=== PATIENT | female | born 1945 | race Caucasian/White ===

== ENCOUNTER 2020-06-17 16:09 | Emergency (ER) | payer MEDICARE, OTHER, SELFPAY ==
[2020-06-17 16:38] VITALS: BP 121/82; PULSE 105; RESP 15; TEMP 37.1; O2SAT 96; BMI 20.1
[2020-06-17 16:55] VITALS: BP 124/72; PULSE 63; RESP 18; O2SAT 96
--- NOTE | 2020-06-17 16:59 | XRR_ITS ---
PROCEDURE INFORMATION: Exam: XR Chest, 1 View Exam date and time: 06/17/2020 5:33 PM Age: 75 years old Clinical indication: Cough and dyspnea TECHNIQUE: Imaging protocol: XR of the chest Views: 1 view. COMPARISON: CR Chest 1 [place] [id number] 12/26/2015 11:02 PM FINDINGS: Tubes, catheters and devices: Pacemaker. Lungs: No visible active interstitial or alveolar airspace disease. COPD/chronic bronchitis. Pleural space: Unremarkable. No pleural effusion. No pneumothorax. Heart/Mediastinum: Cardiac size upper limits of normal. Arterial sclerosis. Bones/joints: Unremarkable. XR/XR chest 1V portable [id number] IMPRESSION: Nonacute.
--- NOTE | 2020-06-17 17:00 | ECG_ITS ---
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 Measurements Intervals [place] Rate: 61 P: 84 AK: 220 QRS: -16 QRSD: 86 T: 23 QT: 411 QTc: 415 Interpretive Statements ELECTRONIC ATRIAL PACEMAKER ABNORMAL RHYTHM ECG Compared to ECG 12/27/2015 10:37:42 Sinus rhythm no longer present Sinus arrhythmia no longer present Myocardial infarct finding no longer present Electronically Signed On 06-18-2020 20:26:34 CDT by Eduardo Ramirez M.D. [email or web address] Identity [facility].[email or web address]/NU/[id number] f
--- NOTE | 2020-06-17 17:00 | W.ED.GENADLT ---
HPI - General Adult General: Chief complaint: General Medical Stated complaint: hypotension-sent by PCP Time Seen by Provider: 06/17/20 16:49 Source: patient Mode of arrival: ambulatory Limitations: no limitations History of Present Illness: HPI narrative: Ms. Shane is a nice 75-year-old female referred to us by Dr. Horvath for low blood pressure in the office. Patient's blood pressure has been in the 90s even as low as 66 systolic. The patient states that over the weekend she is felt poorly with dizziness, lightheadedness and generalized weakness. She is also had URI symptoms. She adamantly denies being exposed to any type of COVID virus that she states she is been showed up in her house the entire time. She denies any chest pain, shortness of breath, headache, back pain, abdominal pain, blood in her stools, fever, urinary symptoms or any other complaints. Associated symptoms: Deny chest pain, dyspnea, headache(s), nausea, rash, palpitations, syncope or vomiting Review of Systems Const: Denies: fever(s) Eyes: Denies: change in vision ENMT: Denies: throat pain Card: Denies: chest pain, palpitations, syncope, pre-syncope or dyspnea on exertion Resp: Denies: dyspnea, productive cough or non-productive cough GI: Denies: abdominal pain, nausea, vomiting or diarrhea : Denies: flank pain, dysuria, urinary frequency or urinary urgency Musc: Denies: neck pain, back pain or extremity pain Skin/Breast: Denies: rash or pruritus Neuro: Denies: headache(s), numbness in extremities, weakness in extremities or dizziness Haris/Lymph: Denies: easy bruising or easy bleeding All/Imm: Denies: urticaria PFS ED PFSH: Medical History (Updated 06/17/20 @ 20:10 by Shy Ferrer) Atrial fibrillation History of myocardial infarction HTN (hypertension) Status post left heart catheterization Surgical History (Updated 06/17/20 @ 17:02 by Shy Ferrer) S/P cardiac pacemaker procedure (~11/22/14) S/P carpal tunnel release S/P cervical spinal fusion S/P knee surgery S/P shoulder surgery S/P tonsillectomy and adenoidectomy S/P total hip arthroplasty S/P tubal ligation Family History Mother CAD (coronary artery disease) Heart disease Brother CAD (coronary artery disease) Father CAD (coronary artery disease) Heart disease Myocardial infarction Other Cancer Social History (Updated 06/17/20 @ 16:44 by Pako Agudelo RN) Smoking and tobacco status: former smoker Alcohol intake: never Physical Exam Const: COMMON NORMALS: no acute distress, patient oriented x3, no limitations, healthy appearing and well nourished GENERAL APPEARANCE: cooperative, well kempt and well developed HENMT: COMMON NORMALS: normocephalic, atraumatic, external ears normal, EAC's normal and Normal external nose present HEAD & SCALP: normal to inspection, normocephalic and atraumatic FACE & SINUS: normal facial exam and face symmetric NOSE: Normal external nose present and Normal nares present EXTERNAL EAR: Yes external ears normal EXTERNAL AUDITORY CANAL: EAC's normal MOUTH: Normal oral and palatal mucosa present, lip normal and tongue normal Eye: COMMON NORMALS: Equal, round and reactive pupils present and conjunctivae normal GENERAL EYE: appearance normal, both eyes and all related structures ALIGNMENT: Yes alignment normal PERIORBITAL: periorbital findings normal EYELID: eyelids normal CONJUNCTIVA: Yes conjunctivae normal SCLERA: sclerae normal PUPIL: Yes Equal, round and reactive pupils present Neck/C-Spine: COMMON NORMALS: full ROM, no lymphadenopathy, supple, no meningeal signs and no JVD GENERAL: Yes normal visual inspection and Yes trachea midline Chest: COMMONS NORMALS: normal inspection of the chest and normal palpation of entire chest wall Resp: COMMON NORMALS: normal respiratory effort, No retractions and No use of accessory muscles EFFORT & INSPECTION: Yes able to speak in complete sentences and Yes symmetric chest movement AUSCULTATION: no crackles, no rales, no rhonchi and no wheezes Cardio: COMMON NORMALS: no JVD, regular rate, regular rhythm, S1 normal heart sound present and S2 normal heart sound present RATE: regular rate RHYTHM: regular rhythm HEART SOUNDS: S1 normal heart sound present, S2 normal heart sound present, no click, no gallops, no murmurs, no rubs and abnormal split S2 GI: COMMON NORMALS: Soft to palpation and No hepatosplenomegaly present PALPATION: Yes Soft to palpation, No Tenderness to palpation present (GI), No Guarding due to palpation present (GI), No Rigid due to palpation, Yes No hepatosplenomegaly present, No Hernia present, No Palpable mass present and No Pulsatile mass present : COMMON NORMALS: Yes no CVA tenderness BLADDER/KIDNEY EXAM: Yes no CVA tenderness EXTERNAL FEMALE EXAM: No Hernia present Back/Pelvis: COMMON NORMALS: no CVA tenderness, thoracic and lumbar spine normal to inspection, no thoracic nor lumbar tenderness and thoraco-lumbar ROM normal Extremity: COMMON NORMALS: normal to inspection, full ROM, capillary refill normal, no joint enlargement, no clubbing, cyanosis or edema and no calf tenderness Neuro: COMMON NORMALS: patient oriented x3, CN's II-XII intact bilaterally, moves all extremities, no focal motor deficits and no sensory deficits noted MENINGEAL SIGNS: Yes no meningeal signs SPEECH: speech normal Psych: COMMON NORMALS: mental status grossly normal, Normal thought process present, cooperative, normal affect, speech normal and activity/motor behavior normal APPEARANCE: Yes well kempt SPEECH: Yes normal speech THOUGHT PROCESS: Normal thought process present Skin: COMMON NORMALS: no rashes or lesions noted, turgor normal, no jaundice, no petechiae and no mottling GENERAL SKIN EXAM: no rashes or lesions noted and turgor normal Course Vital Signs: Vital signs: Vital Signs Temperature 98.7 F 06/17/20 16:38 Pulse Rate 68 06/17/20 22:17 Respiratory Rate 18 06/17/20 22:17 Blood Pressure 115/68 06/17/20 22:17 Pulse Oximetry 96 06/17/20 22:17 MDM - General Adult MDM Narrative: Medical decision making narrative: The patient is not orthostatic and her vital signs have been normal and stable here. The patient complains of URI symptoms but no fever. I will go ahead and COVID test her and then discharge her home. Her digoxin is pending but I anticipat it will be normal. Patient denies any other questions or concerns she declines to stay for any other treatment. She agrees to follow-up with Dr. Horvath for further evaluation and care. I did review the case with Dr. Horvath and she is in agreement with this plan. Patient otherwise no complaints or concerns. Patient has a questionable area on her chest x-ray so I will cover her with antibiotics for possible developing pneumonia. Lab Data: Labs: Lab Results 06/17/20 06/17/20 06/17/20 Range/Units 17:15 17:15 17:15 WBC 5.4 (4.0-10.0) 10^3/ uL RBC 3.78 L (4.1-5.3) 10^6/u L Hgb 11.8 (11.5-15.3) g/dL Hct 36.5 L (37.0-47.0) % MCV 96.6 (81-99) fL MCH 31.2 (28.0-34.0) pg MCHC 32.3 (30.0-36.0) g/dL RDW 13.7 (12.1-15.1) % Plt Count 175 (130-400) 10^3/c mm MPV 9.7 (7.4-10.4) fL Neut % (Auto) 56.2 % Lymph % (Auto) 31.8 % [place] % (Auto) 10.1 % Eos % (Auto) 1.3 % Baso % (Auto) 0.4 % Neut # (Auto) 3.02 (1.8-7.7) 10^3/u L Lymph # (Auto) 1.7 (0.8-4.8) 10^3/u L [place] # (Auto) 0.5 (0.2-0.9) 10^3/u L Eos # (Auto) 0.1 (0.0-0.8) 10^3/u L Baso # (Auto) 0.0 (0.0-0.1) 10^3/u L Nucleated RBC % (a uto) 0 % Nucleated RBCs # 0.0 /100WBC PT (10.5-13.3) SECO NDS INR (0.8-1.2) Sodium 134 L (136-145) mmol/L Potassium 4.0 (3.5-5.1) mmol/L Chloride 97 L (98-107) mmol/L Carbon Dioxide 26 (22-29) mmol/L Anion Gap 15.0 (5-19) BUN 21 (8-23) mg/dL Creatinine 0.7 (0.5-0.9) mg/dL Glucose 82 (65-115) mg/dL Calculated Osmolal ity 274 L (285-295) mOsm/k g Lactic Acid 0.9 (0.5-2.2) mmol/L Calcium 9.5 (8.5-10.5) mg/dL Magnesium 2.0 (1.7-2.3) mg/dL Total Bilirubin 0.2 (0.15-1.2) mg/dL AST 23 (0-32) U/L ALT 10 (0-33) U/L Alkaline Phosphata se 96 (35-105) IU/L Troponin T Baselin e (0-10) ng/L Troponin T 120 Min eyak (0-10) ng/L Delta Troponin T (0-10) ABS# Total Protein 6.9 (6.6-8.7) g/dL Albumin 4.2 (3.5-5.2) g/dL Globulin 2.7 (1.3-4.6) g/dL Lipase 44 (13-60) U/L TSH 1.15 (0.27-4.20) uIU/ mL Urine Color (Yellow) Urine Appearance (CLEAR) Urine pH (5-7) Ur Specific Gravit y (1.005-1.030) Urine Protein (Negative) Urine Glucose (UA) (Normal) Urine Ketones (Negative) Urine Blood (Negative) Urine Nitrate (Negative) Urine Bilirubin (NEGATIVE) Urine Urobilinogen (Negative) mg/dL Ur Leukocyte Jossy ase (Negative) Urine RBC (0-2) /hpf Urine WBC (0-5) /hpf Ur Squamous Epith Cells (0-5) Urine Bacteria (NONE) Digoxin (0.6-1.2) ng/mL 06/17/20 06/17/20 06/17/20 Range/Units 17:15 17:15 17:15 WBC (4.0-10.0) 10^3/ uL RBC (4.1-5.3) 10^6/u L Hgb (11.5-15.3) g/dL Hct (37.0-47.0) % MCV (81-99) fL MCH (28.0-34.0) pg MCHC (30.0-36.0) g/dL RDW (12.1-15.1) % Plt Count (130-400) 10^3/c mm MPV (7.4-10.4) fL Neut % (Auto) % Lymph % (Auto) % [place] % (Auto) % Eos % (Auto) % Baso % (Auto) % Neut # (Auto) (1.8-7.7) 10^3/u L Lymph # (Auto) (0.8-4.8) 10^3/u L [place] # (Auto) (0.2-0.9) 10^3/u L Eos # (Auto) (0.0-0.8) 10^3/u L Baso # (Auto) (0.0-0.1) 10^3/u L Nucleated RBC % (a uto) % Nucleated RBCs # /100WBC PT 11.90 (10.5-13.3) SECO NDS INR 0.85 (0.8-1.2) Sodium (136-145) mmol/L Potassium (3.5-5.1) mmol/L Chloride (98-107) mmol/L Carbon Dioxide (22-29) mmol/L Anion Gap (5-19) BUN (8-23) mg/dL Creatinine (0.5-0.9) mg/dL Glucose (65-115) mg/dL Calculated Osmolal ity (285-295) mOsm/k g Lactic Acid (0.5-2.2) mmol/L Calcium (8.5-10.5) mg/dL Magnesium (1.7-2.3) mg/dL Total Bilirubin (0.15-1.2) mg/dL AST (0-32) U/L ALT (0-33) U/L Alkaline Phosphata se (35-105) IU/L Troponin T Baselin e 8 (0-10) ng/L Troponin T 120 Min eyak (0-10) ng/L Delta Troponin T (0-10) ABS# Total Protein (6.6-8.7) g/dL Albumin (3.5-5.2) g/dL Globulin (1.3-4.6) g/dL Lipase (13-60) U/L TSH (0.27-4.20) uIU/ mL Urine Color (Yellow) Urine Appearance (CLEAR) Urine pH (5-7) Ur Specific Gravit y (1.005-1.030) Urine Protein (Negative) Urine Glucose (UA) (Normal) Urine Ketones (Negative) Urine Blood (Negative) Urine Nitrate (Negative) Urine Bilirubin (NEGATIVE) Urine Urobilinogen (Negative) mg/dL Ur Leukocyte Jossy ase (Negative) Urine RBC (0-2) /hpf Urine WBC (0-5) /hpf Ur Squamous Epith Cells (0-5) Urine Bacteria (NONE) Digoxin 1.0 (0.6-1.2) ng/mL 06/17/20 06/17/20 Range/Units 17:56 19:16 WBC (4.0-10.0) 10^3/ uL RBC (4.1-5.3) 10^6/u L Hgb (11.5-15.3) g/dL Hct (37.0-47.0) % MCV (81-99) fL MCH (28.0-34.0) pg MCHC (30.0-36.0) g/dL RDW (12.1-15.1) % Plt Count (130-400) 10^3/c mm MPV (7.4-10.4) fL Neut % (Auto) % Lymph % (Auto) % [place] % (Auto) % Eos % (Auto) % Baso % (Auto) % Neut # (Auto) (1.8-7.7) 10^3/u L Lymph # (Auto) (0.8-4.8) 10^3/u L [place] # (Auto) (0.2-0.9) 10^3/u L Eos # (Auto) (0.0-0.8) 10^3/u L Baso # (Auto) (0.0-0.1) 10^3/u L Nucleated RBC % (a uto) % Nucleated RBCs # /100WBC PT (10.5-13.3) SECO NDS INR (0.8-1.2) Sodium (136-145) mmol/L Potassium (3.5-5.1) mmol/L Chloride (98-107) mmol/L Carbon Dioxide (22-29) mmol/L Anion Gap (5-19) BUN (8-23) mg/dL Creatinine (0.5-0.9) mg/dL Glucose (65-115) mg/dL Calculated Osmolal ity (285-295) mOsm/k g Lactic Acid (0.5-2.2) mmol/L Calcium (8.5-10.5) mg/dL Magnesium (1.7-2.3) mg/dL Total Bilirubin (0.15-1.2) mg/dL AST (0-32) U/L ALT (0-33) U/L Alkaline Phosphata se (35-105) IU/L Troponin T Baselin e (0-10) ng/L Troponin T 120 Min eyak 7.57 (0-10) ng/L Delta Troponin T -0.43 L (0-10) ABS# Total Protein (6.6-8.7) g/dL Albumin (3.5-5.2) g/dL Globulin (1.3-4.6) g/dL Lipase (13-60) U/L TSH (0.27-4.20) uIU/ mL Urine Color Yellow (Yellow) Urine Appearance Clear (CLEAR) Urine pH 5 (5-7) Ur Specific Gravit y 1.015 (1.005-1.030) Urine Protein Neg (Negative) Urine Glucose (UA) Norm (Normal) Urine Ketones Negative (Negative) Urine Blood Neg (Negative) Urine Nitrate Negative (Negative) Urine Bilirubin Neg (NEGATIVE) Urine Urobilinogen Norm (Negative) mg/dL Ur Leukocyte Jossy ase Negative (Negative) Urine RBC 0-4 H (0-2) /hpf Urine WBC None (0-5) /hpf Ur Squamous Epith Cells 0-4 H (0-5) Urine Bacteria Trace (NONE) Digoxin (0.6-1.2) ng/mL EKG Data^: EKG 1: Attestation: I personally reviewed and interpreted this EKG as follows: EKG interpretation date: 06/17/20 EKG interpretation time: 17:53 Interpretation: Atrial paced rhythm at 61 beats a minute, nonspecific ST and T wave changes. Unchanged from EKG performed in office. Computer generated interpretation: Chest X-Ray 06/17/20 16:59 IMPRESSION: Nonacute. EKG 2: Attestation: I personally reviewed and interpreted this EKG as follows: EKG interpretation date: 06/17/20 EKG interpretation time: 20:07 Interpretation: Atrial paced rhythm at 54 beats a minute, no acute ST-T wave changes. PVC noted. Computer generated interpretation: Chest X-Ray 06/17/20 16:59 IMPRESSION: Nonacute. Discharge Plan Discharge Patient Disposition: Home, Self-Care Clinical Impression: Pneumonia Qualifiers: Pneumonia type: due to unspecified organism Laterality: right Lung location: lower lobe of lung Qualified Code(s): J18.9 - Pneumonia, unspecified organism Condition: Stable Prescriptions: New Levaquin 500 mg tablet 500 mg PO DAILY 10 Days RF: 0 No Action digoxin 125 mcg (0.125 mg) tablet 125 mcg PO DAILY RF: 0 metoprolol tartrate 25 mg tablet 25 mg PO DIRECTED RF: 0 oxybutynin chloride 5 mg tablet 5 mg PO DAILY RF: 0 nitroglycerin [Nitrostat] 0.4 mg tablet, sublingual 0.4 mg SUBLINGUAL Q5M PRN (Reason: chest pains) RF: 0 cyclobenzaprine 10 mg tablet 10 mg PO TID RF: 0 aspirin 325 mg tablet 325 mg PO DAILY RF: 0 cetirizine 10 mg tablet 10 mg PO DAILY RF: 0 citalopram 20 mg tablet 20 mg PO DAILY RF: 0 omeprazole 20 mg Tablet,Delayed Release (Dr/Ec) 20 mg PO DAILY RF: 0 Discharge Orders: Discharge Order (Routine); Ordered 06/17/20 Ordered By: Shy Ferrer Referrals: Tamera Robert MD [Primary Care Provider] - 1-3 days Discharge Diet: Advance as tolerated Discharge Activity: Increase activity as tolerated Patient Instructions: Bacterial Pneumonia (ED) Activity Restrictions/Additional Instructions: Please return to the ER immediately for any of the signs or symptoms listed on your discharge instruction sheets, worsening/changing of your symptoms, you are not getting better as quickly as expected, or for ANY other cause or concerns. Take your medication as prescribed. Quarantine yourself at home until you were called with results of your COVID-19 test. Return to the ER for shortness of breath, uncontrolled fever, return of generalized weakness, or for any other cause for concern. Discharge Date/Time: 06/17/20 22:18 Coding Level of Care Code ED Dispatcher Chief [employer] for Bryan Culver Exam Comprehensive
[2020-06-17 17:21] LABS: Basophils % 0.4 %; Eosinophils # 0.1 10^3/uL (0.0-0.8); Eosinophils % 1.3 %; Hematocrit 36.5 % (37.0-47.0); Hemoglobin 11.8 g/dL (11.5-15.3); Lymphocytes # 1.7 10^3/uL (0.8-4.8); Lymphocytes % 31.8 %; Mean Corpuscular HGB Conc 32.3 g/dL (30.0-36.0); Mean Corpuscular Hemoglobin 31.2 pg (28.0-34.0); Mean Corpuscular Volume 96.6 fL (81-99); Mean Platelet Volume 9.7 fL (7.4-10.4); Monocytes # 0.5 10^3/uL (0.2-0.9); Monocytes % 10.1 %; Neutrophils # 3.02 10^3/uL (1.8-7.7); Neutrophils % 56.2 %; Nucleated Red Blood Cells % 0 %; Platelet Count 175 10^3/cmm (130-400); Red Blood Count 3.78 10^6/uL (4.1-5.3); Red Cell Distribution Width 13.7 % (12.1-15.1); White Blood Count 5.4 10^3/uL (4.0-10.0)
[2020-06-17] MEDS: sodium chloride 0.9% 1,000 ML 100 ML IV (17:21)
[2020-06-17 17:34] LABS: INR 0.85 (0.8-1.2)
[2020-06-17 17:41] LABS: Lactic Sepsis W/Reflex 0.9 mmol/L (0.5-2.2)
[2020-06-17 17:42] LABS: Troponin(5th) Baseline 8 ng/L (0-10)
[2020-06-17 17:51] LABS: Alanine Aminotransferase 10 U/L (0-33); Albumin Level 4.2 g/dL (3.5-5.2); Alkaline Phosphatase 96 IU/L (35-105); Aspartate Amino Transferase 23 U/L (0-32); Blood Urea Nitrogen 21 mg/dL (8-23); Calcium 9.5 mg/dL (8.5-10.5); Carbon Dioxide 26 mmol/L (22-29); Chloride 97 mmol/L (98-107); Globulin 2.7 g/dL (1.3-4.6); Glucose 82 mg/dL (65-115); Lipase 44 U/L (13-60); Osmolality Calculated 274 mOsm/kg (285-295); Sodium 134 mmol/L (136-145); Thyroid Stimulating Hormone 1.15 uIU/mL (0.27-4.20); Total Bilirubin 0.2 mg/dL (0.15-1.2); Total Protein 6.9 g/dL (6.6-8.7)
[2020-06-17 17:52] VITALS: BP 120/69; BP 130/77; BP 131/77; PULSE 62; PULSE 63; PULSE 65
[2020-06-17 17:53] LABS: Slide Review Slide Review Perform
[2020-06-17 18:13] VITALS: BP 136/83; PULSE 63; RESP 19; O2SAT 95
[2020-06-17 18:44] LABS: Bilirubin Urine Neg (NEGATIVE); Blood Urine Neg (Negative); Glucose Urine UA Norm (Normal); Ketones Urine Negative (Negative); Leukocyte Esterase Urine Negative (Negative); Nitrate Urine Negative (Negative); Protein Urine Neg (Negative); Specific Gravity, Urine 1.015 (1.005-1.030); Urine Appearance Clear (CLEAR); Urine Color Yellow (Yellow); Urobilinogen Urine Norm (Negative); pH Urine 5 (5-7)
[2020-06-17 18:45] LABS: Add Urine Culture? No; Bacteria Urine TRACE; RBC Urine 0-4 /hpf (0-2); Squamous Epithelial Cell Urine 0-4 (0-5)
--- NOTE | 2020-06-17 19:00 | ECG_ITS ---
[facility] Test Date: 2020-06-17 Pat Name: Alanis Shane Department: Room: Gender: Female Last Turner: : 1945 Requested By: Shy Vernon Order Number: [id number] Hussain MD: Eduardo Ramirez M.D. Measurements Intervals [place] Rate: 54 P: 99 AL: 214 QRS: -17 QRSD: 86 T: 36 QT: 410 QTc: 391 Interpretive Statements ELECTRONIC ATRIAL PACEMAKER; isolated PVC ABNORMAL RHYTHM ECG Compared to ECG 06/17/2020 17:53:03 No significant changes Electronically Signed On 06-18-2020 20:36:13 CDT by Eduardo Ramirez M.D. [id number]
[2020-06-17 19:47] LABS: Troponin 5 2HR 7.57 ng/L (0-10)
[2020-06-17 20:01] LABS: Troponin 5 2HR Delta -0.43 ABS# (0-10)
[2020-06-17] MEDS: levoFLOXacin 500 mg Tablet PO (20:32)
[2020-06-17 22:17] VITALS: BP 115/68; PULSE 68; RESP 18; O2SAT 96
[2020-06-19 19:00] LABS: Quest SARS-CoV-2 RNA NOT DETECTED (NOT DETECTED)
--- NOTE | 2020-06-20 08:12 | PC.NURSE ---
pt called and informed of neg COVID results.
== END 2020-06-17 22:18 | disposition home or self-care (01) ==
PROVIDERS: Emergency Provider Emergency Medicine; PCP Internal Medicine
DX: J18.9 Pneumonia, unspecified organism (principal); Z79.82 Long term (current) use of aspirin; I48.91 Unspecified atrial fibrillation; I25.2 Old myocardial infarction; I10 Essential (primary) hypertension; Z95.0 Presence of cardiac pacemaker; Z87.891 Personal history of nicotine dependence
CPT/HCPCS: 12345; 36415; 71045; 80053; 80162; 81001; 83605; 83690; 83735; 84443; 84484; 85025; 85610; 87040; 87635; 93005; 96360; 96361; 99284; J7030

== ENCOUNTER 2020-12-11 09:57 | Outpatient (CLI) | payer MEDICARE, OTHER, SELFPAY ==
--- NOTE | 2020-12-11 10:05 | MM_ITS ---
WS: [id number] BILATERAL SCREENING DIGITAL MAMMOGRAM WITH CAD HISTORY: SCREENING COMPARISON: 08/08/2019 and 10/18/2017 Bilateral CC and MLO views submitted. Computer aided detection analyzed. Breast composition: There are scattered areas of fibroglandular density. No suspicious masses, microc alcifications or architectural distortion. Bilateral calcifications. Asymmetry in the central LEFT br east similar to prior studies. MM/[place] [id number] IMPRESSION: BI-RADS: 2-Benign FOLLOW UP: 1 Year Follow-up
== END 2020-12-11 09:58 | disposition home or self-care (01) ==
LOC: RADSHAW 10:03
PROVIDERS: PCP Internal Medicine; Visit Provider Internal Medicine
DX: Z12.31 Encounter for screening mammogram for malignant neoplasm of breast (principal)
CPT/HCPCS: 77067

== ENCOUNTER → 2021-01-28 13:01 | Outpatient (BNVA) | payer MEDICARE, OTHER, SELFPAY | PROVIDERS: PCP Internal Medicine; Referring Provider Internal Medicine; Visit Provider Podiatrist Foot & Ankle Surgery | DX: M20.42 Other hammer toe(s) (acquired), left foot (principal); L60.3 Nail dystrophy; M79.672 Pain in left foot; S93.102A Unspecified subluxation of left toe(s), initial encounter; X58.XXXA Exposure to other specified factors, initial encounter | CPT/HCPCS: 73630 ==

== ENCOUNTER → 2021-09-07 14:17 | Outpatient (BNVA) | payer MEDICARE, OTHER, SELFPAY | PROVIDERS: PCP Internal Medicine; Visit Provider Specialist | DX: M25.562 Pain in left knee (principal); M17.12 Unilateral primary osteoarthritis, left knee | CPT/HCPCS: 73560; 73565 ==

== ENCOUNTER 2021-11-09 13:05 | Outpatient (CLI) | payer MEDICARE, OTHER, SELFPAY ==
--- NOTE | 2021-11-09 13:15 | XR_ITS ---
WS: [id number] LEFT HIP HISTORY: PAIN IN LEFT HIP COMPARISON: 08/21/2019 LEFT hip: No acute fracture or dislocation. No lucency around the acetabular or femoral component. Fe moral head component is situated centrally within the acetabular cup. XR/XR hip LT 2-3V wo/w pel* [id number] IMPRESSION: 1. No hip fracture. 2. LEFT hip arthroplasty is unchanged. No loosening or fracture.
== END 2021-11-09 13:06 | disposition home or self-care (01) ==
PROVIDERS: PCP Internal Medicine; Visit Provider Nurse Practitioner Family
DX: M25.552 Pain in left hip (principal); Z96.642 Presence of left artificial hip joint
CPT/HCPCS: 73502

== ENCOUNTER → 2021-12-09 08:04 | Outpatient (BNVA) | payer MEDICARE, OTHER, SELFPAY | PROVIDERS: PCP Internal Medicine; Referring Provider Internal Medicine; Visit Provider Specialist | DX: M25.552 Pain in left hip (principal) | CPT/HCPCS: 73502 ==

== ENCOUNTER 2021-12-24 06:00 | Outpatient (RCR) | payer MEDICARE, OTHER, SELFPAY | END 2021-12-28 23:59 | disposition home or self-care (01) | LOC: SPT 06:00 | PROVIDERS: PCP Internal Medicine; Referring Provider Specialist; Visit Provider Specialist | DX: M54.50 Low back pain, unspecified (principal) | CPT/HCPCS: 97110; 97162 ==

== ENCOUNTER 2021-12-29 06:00 | Outpatient (RCR) | payer MEDICARE, OTHER, SELFPAY | END 2022-01-25 23:59 | disposition home or self-care (01) | LOC: SPT 06:00 | PROVIDERS: PCP Internal Medicine; Referring Provider Specialist; Visit Provider Specialist | DX: M54.50 Low back pain, unspecified (principal) | CPT/HCPCS: 97110 ==

== ENCOUNTER 2022-01-07 13:21 | Outpatient (CLI) | payer MEDICARE, OTHER, SELFPAY ==
--- NOTE | 2022-01-07 13:32 | MM_ITS ---
WS: [email or web address] BILATERAL DIGITAL SCREENING MAMMOGRAPHY WITH CAD CLINICAL INFORMATION: SCREENING HISTORY: Screening mammogram. No current complaints. COMPARISON: December 11, 2020 TECHNIQUE: Bilateral CC and MLO views. FINDINGS: Scattered fibroglandular densities bilaterally. Punctate and lucent centered calcifications. No suspi cious focal mass, asymmetry, calcifications, or architectural distortion. No evidence of malignancy. MM/[place] [id number] IMPRESSION: BI-RADS: 2-Benign FOLLOW UP: 1 Year Follow-up Recommend return to annual screening mammography.
== END 2022-01-07 13:22 | disposition home or self-care (01) ==
LOC: RADSHAW 13:30
PROVIDERS: PCP Internal Medicine; Visit Provider Internal Medicine
DX: Z12.31 Encounter for screening mammogram for malignant neoplasm of breast (principal)
CPT/HCPCS: 77067

== ENCOUNTER 2022-01-26 06:00 | Outpatient (RCR) | payer MEDICARE, OTHER, SELFPAY | END 2022-02-05 23:59 | disposition home or self-care (01) | LOC: SPT 06:00 | PROVIDERS: PCP Internal Medicine; Referring Provider Specialist; Visit Provider Specialist | DX: M54.50 Low back pain, unspecified (principal) | CPT/HCPCS: 97110 ==

== ENCOUNTER 2022-02-12 10:08 | Outpatient (CLI) | payer MEDICARE, OTHER, SELFPAY ==
--- NOTE | 2022-02-12 10:18 | XR_ITS ---
WS: [id number] XR ankle LT min 3V* [id number] REASON FOR EXAM: ANKLE PAIN, LEFT FINDINGS: On the lateral view there is a suggestion of a nondisplaced fracture involving the posterior distal m ost aspect of the fibula. This abnormality is not readily confirmed on the other views. Mild narrowing of the joint spaces of the left ankle. No soft tissue abnormality. XR/XR ankle LT min 3V* [id number] IMPRESSION: Possible nondisplaced fracture of the posterior distal most left fibula.
== END 2022-02-12 10:09 | disposition home or self-care (01) ==
PROVIDERS: PCP Internal Medicine; Visit Provider Nurse Practitioner Family
DX: M25.572 Pain in left ankle and joints of left foot (principal)
CPT/HCPCS: 73610

== ENCOUNTER 2022-02-15 08:32 | Outpatient (CLI) | payer MEDICARE, OTHER, SELFPAY ==
--- NOTE | 2022-02-15 08:46 | CT_ITS ---
WS: [email or web address] CT HEAD NONCONTRAST HISTORY: UNSPECIFIED FALL/CONFUSION TECHNIQUE: Contiguous axial imaging performed through the brain in 2.5 mm imaging. Bone and soft tiss ue windows. Sagittal and coronal reformats reviewed. All CT scans at [facility] use at least one of these dose optimization techniques: automated exposure control; mA and/or kV adjustment per pa tient size (includes targeted exams where dose is matched to clinical indication); or iterative recon struction. DLP: 1205.21 mGy.cm COMPARISON: 06/18/2013 No acute intracranial hemorrhage, midline shift or mass effect. Mild atrophy. Moderate progression of chronic ischemic changes since 06/18/2013. No prior large territ ory infarct. There is also mild cerebellar atrophy and ischemic disease. Ventricles: Normal size with no hydrocephalus. Paranasal sinuses: Mild mucoperiosteal thickening in the visualized LEFT maxillary sinus. Mastoid air cells: Well pneumatized. Calvarium and scalp: Skull is intact with no soft tissue edema or swelling. CT/CT head wo con* [id number] IMPRESSION: 1. No acute intracranial hemorrhage or edema. 2. Moderate progression of chronic microvascular ischemic changes bilaterally throughout the white matter. 3. No fracture.
== END 2022-02-15 08:33 | disposition home or self-care (01) ==
LOC: RAD 08:35
PROVIDERS: PCP Internal Medicine; Visit Provider Nurse Practitioner Family
DX: R41.0 Disorientation, unspecified (principal); W19.XXXA Unspecified fall, initial encounter; Z46.89 Encounter for fitting and adjustment of other specified devices; M79.672 Pain in left foot
CPT/HCPCS: 70450; 73630; 97760; L4361

== ENCOUNTER 2022-02-15 13:42 | Outpatient (CLI) | payer MEDICARE, OTHER, SELFPAY | END 2022-02-15 13:43 | disposition home or self-care (01) | LOC: SPT 13:43 | PROVIDERS: PCP Internal Medicine; Visit Provider Specialist | DX: Z46.89 Encounter for fitting and adjustment of other specified devices (principal); M79.672 Pain in left foot | CPT/HCPCS: 97760; L4361 ==

== ENCOUNTER → 2022-02-18 09:49 | Outpatient (BNVA) | payer MEDICARE, OTHER, SELFPAY | PROVIDERS: PCP Internal Medicine; Visit Provider Anesthesiology Pain Medicine | DX: G89.29 Other chronic pain (principal); M51.17 Intervertebral disc disorders with radiculopathy, lumbosacral region; Z87.891 Personal history of nicotine dependence | CPT/HCPCS: 72100; 99205 ==

== ENCOUNTER 2022-03-10 13:21 | Outpatient (CLI) | payer MEDICARE, OTHER, SELFPAY ==
--- NOTE | 2022-03-10 14:00 | CT_ITS ---
WS: [id number] CT LEFT FOOT, NONCONTRAST. HISTORY: M79.672 - Pain in left foot Technique: All CT scans at [facility] use at least one of these dose optimization techniques: automated exposure control; mA and/or kV adjustment per patient size (includes targeted exams where dose is matched to clinical indication); or iterative reconstruction. DLP: 132.08 mGy-cm. COMPARISON: Foot radiograph 02/15/2022 There are numerous tiny high density fragments noted in the distal tibiofibular joint space and also posterior to the talus and in the anterior subtalar joint. These may be tiny osseous fragments or lilia cific densities. Due to the distribution and extent favor calcific densities. No donor sites are evid ent. The talus is intact and the calcaneus appears normal. No distal tibial or fibular fracture seen. No osteochondral lesion of the talus. Narrowing of the tarsal articulations. There are additional ti ny osseous or calcific densities intertarsal. Mild deviation and subluxation medially of the second t oe. Hammertoe deformities. CT/CT foot LT wo con* [id number] IMPRESSION: 1. No acute fractures are identified. 2. There are numerous tiny osseous or calcific densities at the ankle and midf oot as described above. Due to the number these densities favor these are proba kira calcific deposit and related to osteoarthritis or CPPD. No acute fracture i dentified or healing fracture.
== END 2022-03-10 13:22 | disposition home or self-care (01) ==
LOC: RAD 13:23
PROVIDERS: PCP Internal Medicine; Visit Provider Specialist
DX: M79.672 Pain in left foot (principal)
CPT/HCPCS: 73700

== ENCOUNTER 2022-03-10 13:25 | Outpatient (CLI) | payer MEDICARE, OTHER, SELFPAY ==
--- NOTE | 2022-03-10 14:30 | CT_ITS ---
WS: [id number] CT LUMBAR SPINE, noncontrast. HISTORY: M54.50 - Low back pain, unspecified TECHNIQUE: Contiguous 2.5 mm axial imaging are performed. Sagittal and coronal reformats are submitte d and reviewed. All CT scans at [facility] use at least one of these dose optimization techni ques: automated exposure control; mA and/or kV adjustment per patient size (includes targeted exams w here dose is matched to clinical indication); or iterative reconstruction. IV contrast: None DLP: 917.59 mGy.cm COMPARISON: Lumbar spine 02/18/2022. Bones are diffusely osteopenic. L4 anterolisthesis by 6 mm. Vacuum disc phenomenon at the L3-4, L4-5 and L5-S1 disc spaces. No fractures. Schmorl's nodes in the endplates of L1 and L2. Facet joints are narrowed throughout. L1-2: Moderate diffuse disc bulging with mild encroachment upon the ventral thecal sac and subarticul ar recesses. Mild facet arthritis. L2-3: Moderate diffuse annular disc bulging with mild encroachment upon the ventral thecal sac and ef facement. No high-grade stenosis. Moderate facet arthritis. L3-4: Diffuse moderate annular disc bulging. Focal disc protrusion RIGHT paracentral contacting the t raversing L4 nerve root. Disc is partially calcified encroaching upon the ventral thecal sac and into the subarticular recesses. Mild facet joint arthritis. L4-5: Diffuse annular disc bulging. Unroofing of the disc due to L4 anterolisthesis. Disc and osteoph yte encroachment upon the ventral thecal sac. Severe ligamentum flavum hypertrophy and facet arthriti s. Disc extrusion extending into the LEFT superior recess. There is moderate central and bilateral brito barticular recess stenosis and mild foraminal stenosis. L5-S1: Mild disc bulging with a central broad-based protrusion. No significant central stenosis. Mode rate facet arthritis. Atherosclerotic plaque within the visualized aorta. The entire aorta is not visualized. Visualized re troperitoneum is negative. Degenerative air in the SI joints bilaterally. CT/CT lumbar spine wo con* [id number] IMPRESSION: 1. Diffuse moderate osteopenia. 2. Grade 1 spondylolisthesis of L4. No pars defects. 3. Moderate central and bilateral subarticular recess stenosis and mild forami nal stenosis at L4-5 as described above. Small LEFT disc protrusion extending i nto the superior lateral recess. 4. Moderate diffuse disc bulging at L3-4 with mild encroachment upon the ventr al thecal sac and lateral recesses. Additional small RIGHT paracentral disc pro trusion with mild encroachment upon the traversing RIGHT L4 nerve root. 5. Multilevel facet joint arthritis most significant at L4-5.
== END 2022-03-10 13:26 | disposition home or self-care (01) ==
LOC: RAD 13:26
PROVIDERS: PCP Internal Medicine; Visit Provider Anesthesiology Pain Medicine
DX: G89.29 Other chronic pain (principal); M85.88 Other specified disorders of bone density and structure, other site; M43.16 Spondylolisthesis, lumbar region; M48.061 Spinal stenosis, lumbar region without neurogenic claudication; M51.26 Other intervertebral disc displacement, lumbar region; M47.896 Other spondylosis, lumbar region
CPT/HCPCS: 72131

== ENCOUNTER → 2022-03-22 09:20 | Outpatient (BNVA) | payer MEDICARE, OTHER, SELFPAY | PROVIDERS: PCP Internal Medicine; Visit Provider Anesthesiology Pain Medicine | DX: M54.50 Low back pain, unspecified (principal); M79.604 Pain in right leg; M79.605 Pain in left leg; Z87.891 Personal history of nicotine dependence | CPT/HCPCS: 99214 ==

== ENCOUNTER 2022-03-25 11:33 | Outpatient (CLI) | payer MEDICARE, OTHER, SELFPAY ==
--- NOTE | 2022-03-25 11:41 | XRR_ITS ---
PROCEDURE INFORMATION: Exam: XR Cervical Spine Exam date and time: 03/25/2022 12:15 PM Age: 77 years old Clinical indication: Neck pain; Prior surgery; Surgery type: Neck fusion; Additional info: Acute neck pain, hardware present TECHNIQUE: Imaging protocol: XR of the cervical spine. Views: 2 or 3 views. COMPARISON: CT head wo con* [id number] 02/15/2022 9:01 AM FINDINGS: Bones/joints: Surgical hardware in place throughout the cervical spine with multilevel degenerative disc space disease. Soft tissues: Unremarkable. XR/XR cervical spine 3V* [id number] IMPRESSION: Surgical hardware in place throughout the cervical spine with multilevel degenerative disc space disease.
== END 2022-03-25 11:34 | disposition home or self-care (01) ==
LOC: RAD 11:36
PROVIDERS: PCP Internal Medicine; Visit Provider Internal Medicine
DX: M54.2 Cervicalgia (principal); M50.30 Other cervical disc degeneration, unspecified cervical region
CPT/HCPCS: 72040

== ENCOUNTER → 2022-03-29 12:46 | Outpatient (BNVA) | payer MEDICARE, OTHER, SELFPAY | PROVIDERS: PCP Internal Medicine; Visit Provider Anesthesiology Pain Medicine | DX: Z87.891 Personal history of nicotine dependence (principal); M47.816 Spondylosis without myelopathy or radiculopathy, lumbar region | CPT/HCPCS: 64493; 64494; 64495; J3490 ==

== ENCOUNTER → 2022-04-12 09:36 | Outpatient (BNVA) | payer MEDICARE, OTHER, SELFPAY | PROVIDERS: PCP Internal Medicine; Visit Provider Anesthesiology Pain Medicine | DX: M54.50 Low back pain, unspecified (principal); M79.604 Pain in right leg; M79.605 Pain in left leg; Z87.891 Personal history of nicotine dependence | CPT/HCPCS: 99214 ==

== ENCOUNTER → 2022-04-19 13:01 | Outpatient (BNVA) | payer MEDICARE, OTHER, SELFPAY | PROVIDERS: PCP Internal Medicine; Visit Provider Specialist | DX: M79.672 Pain in left foot (principal) | CPT/HCPCS: 99213 ==

== ENCOUNTER 2022-05-03 11:26 | Outpatient (CLI) | payer MEDICARE, OTHER, SELFPAY ==
--- NOTE | 2022-05-03 11:42 | CT_ITS ---
WS: [id number] CT CERVICAL SPINE HISTORY: ACUTE NECK PAIN TECHNIQUE: Contiguous 2.5 mm axial imaging performed through the entire cervical spine. Sagittal and coronal reformats also performed. All CT scans at [facility] use at least one of these dose o ptimization techniques: automated exposure control; mA and/or kV adjustment per patient size (include s targeted exams where dose is matched to clinical indication); or iterative reconstruction. DLP: 209.57 mGy-cm. COMPARISON: 06/18/2013 Severe osteopenia. Since the prior examination patient has undergone posterior cervical fusion extend ing from C3 through C6. There is a large central posterior laminectomy defect along the surgical site . Complete loss of the disc spaces at C5-3-4, C4-5 and C6-7 and near complete at C7-T1. Reversal of t he normal cervical lordosis centered at C4. C4 retrolisthesis by 3.3 mm. There is significant artifac t in the central canal along the surgical site. The previously described abnormal soft tissue noted i 2012 is not appreciated and likely has been surgically removed. Craniocervical junction is normal. Facet joints are narrowed from C3 to C6 and partially fused. C2-C3: Central disc protrusion and facet arthritis. No stenosis. C3-C4: Osteophytic ridging with bilateral facet joint arthritis. No high-grade stenosis. Posterior la minectomy defect. C4-C5: Mild RIGHT foraminal narrowing due to osteophyte and facet disease. The central canal is poorl y visualized due to artery. C5-C6: Osteophytic ridging and facet arthritis. C6-C7: Mild osteophytic ridging with moderate LEFT foraminal stenosis. Facet joint arthritis. C7-T1: Mild osteophytic ridging. CT/CT cervical spin wo con* [id number] IMPRESSION: 1. Since the prior examination patient has undergone a posterior cervical fusi on with large laminectomy defects from C3 through C6. 2. Previously described soft tissue mass in the cervical canal is not identifi ed on today's examination, probably surgically removed. The detail of soft tiss ue is significantly compromised by artifact from the hardware. 3. Severe disc space narrowing from C3-4 to C6-7.
== END 2022-05-03 11:27 | disposition home or self-care (01) ==
PROVIDERS: PCP Internal Medicine; Visit Provider Internal Medicine
DX: M54.2 Cervicalgia (principal); Z98.1 Arthrodesis status; M50.323 Other cervical disc degeneration at C6-C7 level; M47.812 Spondylosis without myelopathy or radiculopathy, cervical region; M48.02 Spinal stenosis, cervical region
CPT/HCPCS: 72125

== ENCOUNTER → 2022-05-04 12:48 | Outpatient (BNVA) | payer MEDICARE, OTHER, SELFPAY | PROVIDERS: PCP Internal Medicine; Visit Provider Anesthesiology Pain Medicine | DX: M47.816 Spondylosis without myelopathy or radiculopathy, lumbar region (principal); M54.9 Dorsalgia, unspecified | CPT/HCPCS: 64635; 64636 ==

== ENCOUNTER → 2022-05-07 10:20 | Outpatient (BNVA) | payer MEDICARE, OTHER, SELFPAY | PROVIDERS: PCP Internal Medicine; Visit Provider Nurse Practitioner Family | DX: I48.0 Paroxysmal atrial fibrillation (principal); Z95.0 Presence of cardiac pacemaker; Z87.891 Personal history of nicotine dependence; I25.2 Old myocardial infarction | CPT/HCPCS: 36415; 80048; 80162; 99213; 99214 ==

== ENCOUNTER 2022-05-14 13:00 | Outpatient (CLI) | payer MEDICARE, OTHER, SELFPAY ==
[2022-05-14 13:31] LABS: Digoxin 1.2 ng/mL (0.6-1.2)
== END 2022-05-14 13:01 | disposition home or self-care (01) ==
LOC: LAB 13:02
PROVIDERS: PCP Internal Medicine; Visit Provider Nurse Practitioner Family
DX: I48.0 Paroxysmal atrial fibrillation (principal)
CPT/HCPCS: 80162

== ENCOUNTER → 2022-05-20 10:37 | Outpatient (BNVA) | payer MEDICARE, OTHER, SELFPAY | PROVIDERS: PCP Internal Medicine; Visit Provider Anesthesiology Pain Medicine | DX: M51.17 Intervertebral disc disorders with radiculopathy, lumbosacral region (principal); M79.604 Pain in right leg; M79.605 Pain in left leg; Z87.891 Personal history of nicotine dependence | CPT/HCPCS: 99214 ==

== ENCOUNTER → 2022-05-21 10:08 | Outpatient (BNVA) | payer MEDICARE, OTHER, SELFPAY | PROVIDERS: PCP Internal Medicine; Visit Provider Nurse Practitioner Family | DX: I48.0 Paroxysmal atrial fibrillation (principal); Z95.0 Presence of cardiac pacemaker; I10 Essential (primary) hypertension; Z87.891 Personal history of nicotine dependence | CPT/HCPCS: 93005; 99214 ==

== ENCOUNTER → 2022-05-28 08:00 | Outpatient (BNVA) | payer MEDICARE, OTHER, SELFPAY | PROVIDERS: PCP Internal Medicine; Visit Provider Internal Medicine | DX: Z45.010 Encounter for checking and testing of cardiac pacemaker pulse generator [battery] (principal) | CPT/HCPCS: 93280 ==

== ENCOUNTER → 2022-06-03 14:45 | Outpatient (BNVA) | payer MEDICARE, OTHER, SELFPAY | PROVIDERS: PCP Internal Medicine; Visit Provider Internal Medicine | DX: I48.0 Paroxysmal atrial fibrillation (principal); I95.2 Hypotension due to drugs; Z95.0 Presence of cardiac pacemaker; I25.2 Old myocardial infarction; I10 Essential (primary) hypertension; Z87.891 Personal history of nicotine dependence | CPT/HCPCS: 99214 ==

== ENCOUNTER → 2022-06-17 09:37 | Outpatient (BNVA) | payer MEDICARE, OTHER, SELFPAY | PROVIDERS: PCP Internal Medicine; Visit Provider Anesthesiology Pain Medicine | DX: M79.18 Myalgia, other site (principal); M51.17 Intervertebral disc disorders with radiculopathy, lumbosacral region; M79.604 Pain in right leg; M79.605 Pain in left leg; Z87.891 Personal history of nicotine dependence | CPT/HCPCS: 20553; 99214; J1030 ==

== ENCOUNTER → 2022-07-22 10:06 | Outpatient (BNVA) | payer MEDICARE, OTHER, SELFPAY | PROVIDERS: PCP Internal Medicine; Visit Provider Anesthesiology Pain Medicine | DX: M16.11 Unilateral primary osteoarthritis, right hip (principal); M54.50 Low back pain, unspecified; M79.604 Pain in right leg; M79.605 Pain in left leg | CPT/HCPCS: 73502; 99214 ==

== ENCOUNTER → 2022-08-19 10:26 | Outpatient (BNVA) | payer MEDICARE, OTHER, SELFPAY | PROVIDERS: PCP Internal Medicine; Visit Provider Anesthesiology Pain Medicine | DX: G89.29 Other chronic pain (principal); M51.17 Intervertebral disc disorders with radiculopathy, lumbosacral region; M16.11 Unilateral primary osteoarthritis, right hip; Z87.891 Personal history of nicotine dependence | CPT/HCPCS: 99214 ==

== ENCOUNTER → 2022-09-03 08:58 | Outpatient (BNVA) | payer MEDICARE, OTHER, SELFPAY | PROVIDERS: PCP Internal Medicine; Visit Provider Internal Medicine | DX: Z45.010 Encounter for checking and testing of cardiac pacemaker pulse generator [battery] (principal) | CPT/HCPCS: 93280 ==

== ENCOUNTER → 2022-09-08 13:10 | Outpatient (BNVA) | payer MEDICARE, OTHER, SELFPAY | PROVIDERS: PCP Internal Medicine; Visit Provider Anesthesiology Pain Medicine | DX: M16.11 Unilateral primary osteoarthritis, right hip (principal); M25.551 Pain in right hip; Z87.891 Personal history of nicotine dependence; Z79.899 Other long term (current) drug therapy | CPT/HCPCS: 20610; 36415; 77002; 80162; J1030 ==

== ENCOUNTER → 2022-09-22 13:54 | Outpatient (BNVA) | payer MEDICARE, OTHER, SELFPAY | PROVIDERS: PCP Internal Medicine; Visit Provider Anesthesiology Pain Medicine | DX: M51.17 Intervertebral disc disorders with radiculopathy, lumbosacral region (principal); M16.11 Unilateral primary osteoarthritis, right hip; M79.604 Pain in right leg; M79.605 Pain in left leg; Z87.891 Personal history of nicotine dependence | CPT/HCPCS: 99213 ==

== ENCOUNTER → 2022-10-04 11:14 | Outpatient (BNVA) | payer MEDICARE, OTHER, SELFPAY | PROVIDERS: PCP Internal Medicine; Visit Provider Internal Medicine Cardiovascular Disease | DX: I48.0 Paroxysmal atrial fibrillation (principal); I10 Essential (primary) hypertension; Z87.891 Personal history of nicotine dependence; I25.2 Old myocardial infarction | CPT/HCPCS: 99213; 99214 ==

== ENCOUNTER 2022-11-11 10:21 | Outpatient (CLI) | payer MEDICARE, OTHER, SELFPAY ==
--- NOTE | 2022-11-11 10:53 | XRR_ITS ---
PROCEDURE INFORMATION: Exam: XR Chest Exam date and time: 11/11/2022 10:53 AM Age: 77 years old Clinical indication: Cough; Prior surgery; Surgery type: C spine, pacemaker TECHNIQUE: Imaging protocol: Radiologic exam of the chest. Views: 2 views. COMPARISON: CR XR chest 1V portable [id number] 06/17/2020 5:23 PM FINDINGS: Lungs: There is an ill-defined vague masslike opacity projecting peripherally over the right mid lung zone seen on the PA projection of the current study that needs further imaging for clarification. Remaining lung carter are clear. There are scattered granulomatous calcifications within the mediastinum and right hilum as well as the right lung base, stable. Pleural spaces: Unremarkable. No pleural effusion. No pneumothorax. Heart/Mediastinum: Cardiac silhouette is mildly enlarged. There is a dual echo pacemaker projecting within the right atrium right ventricle unchanged. Bones/joints: Unremarkable. XR/XR chest 2V* [id number] IMPRESSION: Findings inconclusive for right mid lung mass for which follow-up nonemergent CT chest recommended for further evaluation.
== END 2022-11-11 10:22 | disposition home or self-care (01) ==
PROVIDERS: PCP Internal Medicine; Visit Provider Nurse Practitioner Family
DX: R05.9 Cough, unspecified (principal); Z96.0 Presence of urogenital implants
CPT/HCPCS: 71046

== ENCOUNTER 2022-11-19 06:35 | Outpatient (CLI) | payer MEDICARE, OTHER, SELFPAY ==
--- NOTE | 2022-11-19 | CT_ITS ---
WS: [id number] CT CHEST WITH INTRAVENOUS CONTRAST HISTORY: MASSLIKE OPACITY central RIGHT lung TECHNIQUE: Contiguous 5 mm axial imaging performed on the thorax. Coronal and sagittal reformats are submitted. All CT scans at [facility] use at least one of these dose optimization techniques: automated exposure control; mA and/or kV adjustment per patient size (includes targeted exams where dose is matched to clinical indication); or iterative reconstruction. CONTRAST: Omnipaque 350; 100 mL IV. DLP: 587.70 mGy.cm COMPARISON: Chest radiograph 11/11/2022 Lungs and central airway: Hyperinflated lungs with emphysema. Benign calcified granuloma RIGHT lung b ase. Very minimal linear areas of interstitial thickening in the central RIGHT lung along the superio r major fissure extending towards the RIGHT upper lobe. This interstitial thickening corresponds to t he opacifications seen on the recent chest radiograph and is improving. No mass identified. There are additional areas of very minimal scarring in the upper lung carter bilaterally. Pleura: Normal. No pleural effusion. Heart and pericardium: Heart is markedly enlarged. All 4 chambers are enlarged. Mediastinum and will: No adenopathy. Vessels: Dilated ectatic aorta. Nonaneurysmal aorta with maximum diameter of 3.9 cm. Pulmonary artery is enlarged measuring 3.8 cm. Nonocclusive thrombus in the distal RIGHT main pulmonary artery. Addit ional thrombus is noted in the segmental branches of the RIGHT lower lobe which becomes occlusive tow ards the segmental branches. There is a additional thrombus in the proximal RIGHT upper lobe pulmonar y artery. Chest wall and lower neck: Dual lead LEFT subclavian pacer. Upper abdomen: Small hiatal hernia. Hepatic and splenic granulomata. There are 2 very small hypodense nodules near the neck of the pancreas along the posterior border with the largest measuring 8.7 mm a nd the smaller measuring 5.5 mm. This additional very tiny 3 mm hypodense nodule towards the tail of the pancreas. Pancreatic duct is not dilated. The head is not imaged in its entirety. Common bile ashanti t measures 8 mm at the pancreatic head. Subcentimeter hypodensities upper pole LEFT kidney. Osseous structures: Moderate thoracic spondylosis. No destructive lesions. CT/CT chest w con* [id number] IMPRESSION: 1. Pulmonary emboli RIGHT upper and lower lobe arteries. 2. Minimal interstitial thickening related to mild atelectasis or pneumonitis along the RIGHT major fissure. Corresponds to the abnormality seen on recent ch est radiograph. No mass. 3. Chronic emphysema. 4. Several low density nodules in the pancreas. The largest measures 8.7 mm. I ndeterminate. May be benign or early malignancy. Recommend follow-up pancreatic CT evaluation 3-[address] should be performed with IV and oral contrast. 5. Marked cardiomegaly. 6. Ectatic mildly dilated thoracic aorta and pulmonary hypertension. Notified Dr. Robert at 11/19/2022 8:19 AM.
[2022-11-19 07:40] LABS: Blood Urea Nitrogen 17 mg/dL (8-23)
[2022-11-19] MEDS: iohexol 350 mg/mL 100 mL Btl IV (07:48)
== END 2022-11-19 06:36 | disposition home or self-care (01) ==
LOC: RAD 06:37
PROVIDERS: PCP Internal Medicine; Visit Provider Internal Medicine
DX: R91.8 Other nonspecific abnormal finding of lung field (principal); R05.9 Cough, unspecified; I26.99 Other pulmonary embolism without acute cor pulmonale; J43.9 Emphysema, unspecified; K86.89 Other specified diseases of pancreas; I51.7 Cardiomegaly
CPT/HCPCS: 71260; 82565; 84520; Q9967

== ENCOUNTER → 2022-12-02 13:54 | Outpatient (BNVA) | payer MEDICARE, OTHER, SELFPAY | PROVIDERS: PCP Internal Medicine; Visit Provider Anesthesiology Pain Medicine | DX: I48.0 Paroxysmal atrial fibrillation (principal); I95.2 Hypotension due to drugs; Z87.891 Personal history of nicotine dependence; M47.812 Spondylosis without myelopathy or radiculopathy, cervical region; M16.11 Unilateral primary osteoarthritis, right hip; M51.17 Intervertebral disc disorders with radiculopathy, lumbosacral region | CPT/HCPCS: 99214 ==

== ENCOUNTER 2022-12-09 11:37 | Outpatient (CLI) | payer MEDICARE, OTHER, SELFPAY ==
--- NOTE | 2022-12-09 12:00 | USCV_ITS ---
Alanis Tian Age: 77 Gender: F : 1945 Exam Date: 12/09/2022 12:28 Ordering Phys: Wesley Timmons M.D ([email or web address]) Technologist: Markos Perez Exam Location: [facility] – [place] Indication: shortness of breath BP: 122 / 77 HR: 63 Rhythm: Other Technical Quality: Adequate MEASUREMENTS (Male / Female) Normal Values 2D ECHO LV Diastolic Diameter PLAX 4.4 cm 4.2 - 5.9 / 3.9 - 5.3 cm LV Systolic Diameter PLAX 2.8 cm IVS Diastolic Thickness 0.7 cm 0.6 - 1.0 / 0.6 - 0.9 cm IVS Systolic Thickness 1.1 cm LVPW Diastolic Thickness 1.1 cm 0.6 - 1.0 / 0.6 - 0.9 cm LVPW Systolic Thickness 1.7 cm LVOT Diameter 2.0 cm LV Ejection Fraction 2D Teich 65.6 % LV Ejection Fraction MOD 2C 56.6 % LV Ejection Fraction 2C AL 58.7 % LA Diameter 3.9 cm LA Width 4.4 cm LA Height 5.9 cm RA Width 3.6 cm RA Height 5.9 cm Aorta at Sinotubular Diameter 2.8 cm IVC Diameter 1.2 cm M-MODE Aortic Annulus Diameter 2.7 cm LA Ao Ratio MM 1.4 MV E Point Septal Separation 0.6 cm DOPPLER AV Peak Velocity 161.0 cm/s LVOT Peak Velocity 96.0 cm/s AV Area Cont Eq vti 1.8 cm squared AV Area Cont Eq pk 2.0 cm squared MV Area PHT 7.1 cm squared Mitral E to A Ratio 2.1 MV E' Velocity 49.5 cm/s Mitral E to LV E' Lateral Ratio 5.7 TR Peak Velocity 278.3 cm/s TR Peak Gradient 31.0 mmHg TR Mean Velocity 206.9 cm/s TR Mean Gradient 18.5 mmHg TR Velocity Time Integral 80.0 cm Right Atrial Pressure 3.0 mmHg Pulmonary Artery Systolic Pressu 34.0 mmHg PV Peak Velocity 65.0 cm/s RV Acceleration Time 0.1 s RV Ejection Time 0.2 s RV AcT/ET 0.6 FINDINGS Left Ventricle Left ventricle is normal in size. LV systolic is normal normal with EF 50-55%. Septal motion is consistent with paced rhythm. Right Ventricle Normal in size and function. Pacemaker lead is seen. Right Atrium Normal in size. Pacemaker lead is seen Left Atrium Dilated Mitral Valve Mitral valve is thickened. Mild mitral regurgitation Aortic Valve Aortic valve is thickened. No significant aortic stenosis seen. Mild to moderate aortic regurgitation. Tricuspid Valve Mild tricuspid regurgitation. RVSP is 35 to 40 mmHg. This is consistent with mild pulmonary hypertension. Pulmonic Valve Not well-visualized. Mild pulmonic regurgitation. Pericardium Normal Aorta Normal in size IVC Appears to be normal CONCLUSIONS LV systolic function is normal with EF of 50 to 55%. Left atrial dilation Mild mitral regurgitation Mild to moderate aortic regurgitation Mild tricuspid regurgitation Mild pulmonary hypertension Mild pulmonic regurgitation. Compared to prior echocardiogram from 2016, no significant changes are seen Wesley Timmons MD (Electronically Signed) Final Date: 18 December 2022 11:30 S
--- NOTE | 2022-12-09 12:45 | USCV_ITS ---
Alanis Tian Age: 77 Gender: F : 1945 Exam Date: 12/09/2022 13:02 Ordering Phys: Wesley Timmons M.D ([email or web address]) Technologist: Markos Perez [place] [facility] [place]: leg swelling PROCEDURES: Venous duplex imaging was performed in bilateral lower extremities. The following venous structures were evaluated: common femoral vein, profunda vein, proximal portion of the greater saphenous vein, superficial femoral vein, and the popliteal vein. In addition, the posterior tibial and peroneal trunk were evaluated. Serial compression, augmentation maneuvers, and spectral Doppler flow evaluation were performed. FINDINGS: Normal 2-D Doppler and augmentation and compressibility throughout the lower extremity venous structures. Additional imaging through the proximal calf veins also reveals no thrombus. Limited evaluation of the greater saphenous vein is patent with no thrombus.. CONCLUSIONS No evidence of right lower extremity DVT. No evidence of left lower extremity DVT. 2.5 x 3.8cm Left popliteal cyst preliminary report called after completion of the exam. Luksaz Peguero MD (Electronically Signed) Final Date: 09 December 2022 14:04 S
== END 2022-12-09 11:38 | disposition home or self-care (01) ==
LOC: RAD 11:39
PROVIDERS: PCP Internal Medicine; Visit Provider Internal Medicine
DX: M79.89 Other specified soft tissue disorders (principal); R06.02 Shortness of breath; I08.3 Combined rheumatic disorders of mitral, aortic and tricuspid valves; I27.20 Pulmonary hypertension, unspecified; M71.22 Synovial cyst of popliteal space [Baker], left knee
CPT/HCPCS: 93306; 93970

== ENCOUNTER → 2022-12-17 09:27 | Outpatient (BNVA) | payer MEDICARE, OTHER, SELFPAY | PROVIDERS: PCP Internal Medicine; Visit Provider Internal Medicine | DX: Z45.010 Encounter for checking and testing of cardiac pacemaker pulse generator [battery] (principal) | CPT/HCPCS: 93280 ==

== ENCOUNTER → 2023-01-19 12:39 | Outpatient (BNVA) | payer MEDICARE, OTHER, SELFPAY | PROVIDERS: PCP Internal Medicine; Visit Provider Anesthesiology Pain Medicine | DX: M47.812 Spondylosis without myelopathy or radiculopathy, cervical region (principal) | CPT/HCPCS: 64490; 64491; 64492; J3490 ==

== ENCOUNTER → 2023-02-03 09:16 | Outpatient (BNVA) | payer MEDICARE, OTHER, SELFPAY | PROVIDERS: PCP Internal Medicine; Visit Provider Anesthesiology Pain Medicine | DX: M54.50 Low back pain, unspecified (principal); M16.11 Unilateral primary osteoarthritis, right hip; M47.812 Spondylosis without myelopathy or radiculopathy, cervical region | CPT/HCPCS: 99214 ==

== ENCOUNTER 2023-02-22 06:02 | Outpatient (CLI) | payer MEDICARE, OTHER, SELFPAY ==
--- NOTE | 2023-02-22 06:14 | CT_ITS ---
WS: [id number] CTA CHEST WITH ABDOMEN AND PELVIS TECHNIQUE: Contrast enhanced CTA of the chest, abdomen, and pelvis with coronal and sagittal reformat melissa images and additional MIP Images. CLINICAL INFORMATION: ABNORMAL GASTRONINTESTINAL TRACT IMAGING, PE COMPARISON: None. DLP: 616.[address] scans at [facility] use at least one of these dose optimization techniques: automated e xposure control; mA and/or kV adjustment per patient size (includes targeted exams where dose is matc hed to clinical indication); or iterative reconstruction. FINDINGS: Proximal main pulmonary arteries are normal. Normal visualized segmental and subsegmental pulmonary a rteries today. No recurrent or progressive pulmonary embolus. Stable ectatic thoracic aorta. Enlarged central pulmonary arteries can be seen with pulmonary arterial hypertension unchanged. Aortic calcif ication. Chronic emphysematous changes. Interstitial thickening in the lung bases. Cardiomegaly. AICD . No mediastinal or hilar lymphadenopathy. ABDOMEN PELVIS: Mild diffuse fatty infiltration the liver. Normal gallbladder. Normal portal vein and splenic vein. N ormal pancreatic parenchymal enhancement. Normal spleen. Tiny cyst or hemangioma in the spleen. Madeleine l GE junction. Adrenal glands are normal. Normal renal parenchymal enhancement. No hydronephrosis. A few small renal cortical cysts. Aortic calcification. Normal caliber abdominal aorta. Prior postoperative changes LE FT CATRACHITO. Disc bulging worse at L3-L4 and L4-L5. Grade 1 anterolisthesis L4 on L5. Previously described small cystic appearing lesions in the pancreas are unchanged. Mild prominence of the common bile duct measuring 8 mm is unchanged. Sigmoid diverticulosis. CT/CT angio chest w abd pel w con IMPRESSION: 1. No evidence of new or recurrent pulmonary embolus. 2. Both lungs are well aerated. No acute pulmonary infiltrates. 3. Stable ectatic thoracic aorta. 4. A few tiny low-attenuation lesions in the pancreas are unchanged in appeara nce. Differential considerations include small cystadenomas or IPMN. Recommend 6 month follow-up CT abdomen pelvis pancreatic protocol. 5. Mild prominence of the common bile duct is unchanged. No evidence of intrah epatic ductal dilatation. 6. No other remarkable findings.
[2023-02-22] MEDS: iohexol 350 mg/mL 500 mL Btl (per mL) PO (06:21)
[2023-02-22] MEDS: iohexol 350 mg/mL 500 mL Btl (per mL) IV (07:11)
== END 2023-02-22 06:03 | disposition home or self-care (01) ==
LOC: RAD 06:04
PROVIDERS: PCP Internal Medicine; Visit Provider Internal Medicine
DX: R93.3 Abnormal findings on diagnostic imaging of other parts of digestive tract (principal); I26.99 Other pulmonary embolism without acute cor pulmonale; I77.819 Aortic ectasia, unspecified site; K86.9 Disease of pancreas, unspecified
CPT/HCPCS: 71275; 74177; Q9967

== ENCOUNTER → 2023-02-23 13:48 | Outpatient (BNVA) | payer MEDICARE, OTHER, SELFPAY | PROVIDERS: PCP Internal Medicine; Visit Provider Anesthesiology Pain Medicine | DX: M47.812 Spondylosis without myelopathy or radiculopathy, cervical region (principal) | CPT/HCPCS: 64633; 64634; 93288; 93296; J1030 ==

== ENCOUNTER → 2023-03-10 09:30 | Outpatient (BNVA) | payer MEDICARE, OTHER, SELFPAY | PROVIDERS: PCP Internal Medicine; Visit Provider Anesthesiology Pain Medicine | DX: M47.812 Spondylosis without myelopathy or radiculopathy, cervical region (principal); M25.59 Pain in other specified joint; M54.50 Low back pain, unspecified; M16.11 Unilateral primary osteoarthritis, right hip | CPT/HCPCS: 72050; 99214 ==

== ENCOUNTER 2024-02-02 12:17 | Outpatient (CLI) | payer MEDICARE, OTHER, SELFPAY ==
--- NOTE | 2024-02-02 12:29 | XR_ITS ---
WS: [id number] PA and lateral chest, 02/02/2024 Clinical Data: ACUTE COUGH/FEVER Comparison: Two-view chest, 11/11/2022 Findings: No nodules, masses or effusions are seen. There is a patchy right upper lobe opacity which probably represents acute pneumonia. The heart is at the upper limits of normal no pneumothorax is se en. The pulmonary vascularity is not increased. The aortic arch shows calcification with tortuosity o f the descending thoracic aorta. There is a pacemaker generator overlying the left upper chest with w ires in the heart. There is a right and fusion catheter ending at the caval atrial junction. There is a posterior cervical fusion. Impression: 1. Patchy right upper lobe opacity which probably represents pneumonia. 2. Cardiomegaly and atherosclerosis.
[2024-02-02 13:30] LABS: Basophils # 0.1 10^3/uL (0.0-0.1); Basophils % 0.5 %; Eosinophils % 0.1 %; Hematocrit 34.5 % (36-47); Lymphocytes # 1.2 10^3/uL (0.8-4.8); Lymphocytes % 11.3 %; Mean Corpuscular HGB Conc 32.2 g/dL (30-55); Mean Corpuscular Hemoglobin 27.3 pg (27-33); Mean Corpuscular Volume 84.8 fl (85-98); Mean Platelet Volume 9.2 fL (7.4-10.4); Monocytes # 0.9 10^3/uL (0.2-0.9); Monocytes % 7.9 %; Neutrophils # 8.68 10^3/uL (1.8-7.7); Neutrophils % 79.2 %; Nucleated Red Blood Cells % 0 %; Platelet Count 263 10^3/cmm (157-399); Red Blood Count 4.07 10^6/uL (3.85-5.65); Red Cell Distribution Width 15.7 % (12.1-15.1); White Blood Count 10.96 10^3/uL (3.29-11.43)
[2024-02-02 22:27] LABS: Adenovirus Not Detected (NOT DETECT); Chlamydia Pneumoniae Not Detected (NOT DETECT); Coronavirus 229E,HKU1,NL63,OC4 Not Detected (NOT DETECT); Human Metapneumovirus Not Detected (NOT DETECT); Human Rhinovirus/Enterovirus Detected (NOT DETECT); Influenza A Not Detected (NOT DETECT); Influenza A H1 Not Detected (NOT DETECT); Influenza A H1-2009 Not Detected (NOT DETECT); Influenza A H3 Not Detected (NOT DETECT); Influenza B Not Detected (NOT DETECT); Mycoplasma Pneumoniae Not Detected (NOT DETECT); Parainfluenza Virus Type 1 Not Detected (NOT DETECT); Parainfluenza Virus Type 2 Not Detected (NOT DETECT); Parainfluenza Virus Type 3 Not Detected (NOT DETECT); Parainfluenza Virus Type 4 Not Detected (NOT DETECT); Respiratory Syncytial Virus A Not Detected (NOT DETECT); Respiratory Syncytial Virus B Not Detected (NOT DETECT); SARS-COV-2 Not Detected (NOT DETECT)
== END 2024-02-02 12:18 | disposition home or self-care (01) ==
PROVIDERS: PCP Internal Medicine; Visit Provider Nurse Practitioner Family
DX: R91.8 Other nonspecific abnormal finding of lung field (principal); R50.9 Fever, unspecified; R05.1 Acute cough; I51.7 Cardiomegaly; I70.0 Atherosclerosis of aorta
CPT/HCPCS: 36415; 71046; 85025; 87486; 87581; 87633